=== PATIENT | female | born 1995 | race African-American/Black ===

== ENCOUNTER 2018-07-19 18:12 | Emergency (ER) | payer OTHER ==
[~2018-07-19] VITALS: Ht 160 cm; Wt 61.7 kg
[2018-07-19 18:31] VITALS: BP 129/68
--- NOTE | 2018-07-19 18:39 | NUR ---
WAIT IN LOBBY,VSS
--- NOTE | 2018-07-19 19:21 | NUR ---
PT AMBULATED TO BED #4
--- NOTE | 2018-07-19 19:32 | NUR ---
PT TO ED WITH C/O SUPRAPUBIC ABD PAIN RADIATING TO BACK X 3 DAYS. PT REPORTS NAUSEA BUT NO VOMITTING. ABD IS SOFT NON TENDER WITH NO DISTENTION NOTED. BOWEL SOUNDS ACTIVE X 4. PT PLACED INTO BED, PENDING MD YUN.
[2018-07-19] MEDS ORDERED: KETOROLAC 30 MG/ML VIAL IM ONE (19:35)
[2018-07-19] MEDS ORDERED: oxyCODONE/APAP 5/325 MG 1 TAB TAB PO ONE (20:20)
[2018-07-19 20:57] VITALS: BP 118/68
--- NOTE | 2018-07-19 20:57 | NUR ---
Patient discharged with v/s stable. Written and verbal after care instructions given and explained. Patient alert, oriented and verbalized understanding of instructions. Ambulatory with steady gait. All questions addressed prior to discharge. ID band removed. Patient advised to follow up with PMD. Rx of PERCOCET 5MG-325MG given. Patient educated on indication of medication including possible reaction and side effects. Opportunity to ask questions provided and answered.
== END 2018-07-19 20:57 | disposition home or self-care (01) ==
LOC: MED 18:12
DX: N94.6 Dysmenorrhea, unspecified (principal)
CPT/HCPCS: 81002; 81025; 96372; 99283; J1885